=== PATIENT | male | born 1980 | race Caucasian/White ===

== ENCOUNTER 2020-03-05 17:48 | Emergency (ER) | payer OTHER ==
[~2020-03-05] VITALS: Ht 188 cm; Wt 74.8 kg
[~2020-03-05 17:48] MED LIST: CYCL10 PO; DOXY100 PO; Naprosyn500 MG PO; OXYACE5T PO; PERM5TC TOP
== END 2020-03-05 18:19 | disposition home or self-care (01) ==
LOC: ER 17:48
DX: J06.9 Acute upper respiratory infection, unspecified (principal); Z88.5 Allergy status to narcotic agent
CPT/HCPCS: 99283

== ENCOUNTER 2020-08-01 19:18 | Emergency (ER) | payer OTHER ==
[~2020-08-01] VITALS: Ht 175.3 cm; Wt 68.0 kg
== END 2020-08-01 20:30 | disposition left against medical advice (07) ==
LOC: ER 19:18
DX: Z02.1 Encounter for pre-employment examination (principal); Z53.21 Procedure and treatment not carried out due to patient leaving prior to being seen by health care provider
CPT/HCPCS: 99282

== ENCOUNTER 2020-12-31 14:35 | Observation (INO) | payer OTHER ==
[~2020-12-31] VITALS: Ht 185.4 cm; Wt 67.2 kg
[2020-12-31 15:09] LABS: BASOPHILS ABSOLUTE AUTO 0.07 K/mm3 (0.00-0.23); BASOPHILS PERCENT AUTO 1 % (0-2); EOSINOPHILS ABSOLUTE AUTO 0.31 K/mm3 (0.00-0.68); EOSINOPHILS PERCENT AUTO 3 % (0-6); Hematocrit 40.3 % (37.0-53.0); Hemoglobin 13.6 g/dL (13.5-17.5); IMMATURE GRAN ABSOLUTE AUTO 0.03 K/mm3 (0.00-0.10); IMMATURE GRAN PERCENT AUTO 0 % (0-1); LYMPHOCYTES PERCENT AUTO 34 % (21-46); MONOCYTES ABSOLUTE AUTO 0.91 K/mm3 (0.16-1.47); MONOCYTES PERCENT AUTO 9 % (4-13); Mean Corpuscular HGB 29.5 pg (26.0-34.0); Mean Corpuscular HGB Conc 33.7 g/dL (31.5-36.5); Mean Corpuscular Volume 87 fL (80-100); Mean Platelet Volume 10.1 fL (9.1-12.4); NEUTROPHILS PERCENT AUTO 52 % (41-73); Platelet Count 268 K/mm3 (150-400); RDW Coefficient Variation 13.7 % (11.7-14.2); RDW Standard Deviation 44.1 fL (35.1-46.3); Red Blood Cell Count 4.61 M/mm3 (4.30-5.90); White Blood Cell Count 9.72 K/mm3 (4.00-11.30)
[2020-12-31 15:23] LABS: International Normalized Ratio 0.98; Prothrombin Time Results 10.6 Sec (9.7-11.5)
[2020-12-31 15:31] LABS: Alanine Aminotransfer (ALT/SGP 29 U/L (12-78); Albumin/Globulin Ratio 1.1 (0.8-1.8); Alk Phos 70 U/L (50-136); Anion Gap 3 mmol/L (6-16); Aspartate Aminotrans (AST/SGOT 16 U/L (12-37); Bilirubin, Total 0.3 mg/dL (0.1-1.0); Blood Urea Nitrogen 16 mg/dL (8-24); CO2, Blood 28 mmol/L (21-32); Calcium, Blood 9.3 mg/dL (8.5-10.1); Chloride, Blood 108 mmol/L (98-108); Creatinine, Blood 1.07 mg/dL (0.60-1.20); Ethanol (Alcohol), Blood, Med 3 mg/dL; Globulin, Blood 3.5 g/dL (2.2-4.0); Glomerular Filtration Rate >60 (60-); Glucose, Blood 111 mg/dL (70-99); Potassium, Blood 3.8 mmol/L (3.5-5.5); Sodium, Blood 139 mmol/L (136-145); Total Protein, Blood 7.5 g/dL (6.4-8.2)
--- NOTE | 2020-12-31 18:35 | NUR ---
ADMISSION: REPORT RECEIVED FROM ED RN ALEX. PT TO UNIT AT 1730. UPON ASSESSMENT PT DOES NOT APPEAR TO BE IN ANY ACUTE DISTRESS. IS DROWSY, WILL OPEN EYES SLIGHTY WHEN ASKED AND FOLLOWS COMMANDS. PT IS ORIENTED TO SELF AND PLACE. DISORIENTED TO TIME AND SITUATION. C -COLLAR IN PLACE. VSS, TELE PLACED AND VERIFIED WNL. PT FATHER AT BEDSIDE AND HELPED WITH ADMISSION HX, HOME MEDICATIONS UNKNOWN AT THIS TIME. WILL CTM AND REPORT TO NOC RN.
--- NOTE | 2020-12-31 19:45 | NUR ---
DR TANNER IN TO SEE PT. FATHER IN ROOM.
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
[2021-01-01] MEDS ORDERED: Percocet 5-3251 EACH PO (10:59)
--- NOTE | 2021-01-01 11:16 | NUR ---
DISCHARGE: PACKET PRINTED AND PT EDUCATED. PT GIVEN NARCO SCRIPT, IV DC'D WNL. PT DENIED NEED FOR WHEELCHAIR. LEFT UNIT ON FOOT WITH DAD AT ABOUT 11:15
== END 2021-01-01 11:15 | disposition home or self-care (01) ==
LOC: ER 14:35 → SURS 14:36
PROVIDERS: Emergency Medicine; ADMIT Surgery
DX: S06.0X9A Concussion with loss of consciousness of unspecified duration, initial encounter (principal); F17.210 Nicotine dependence, cigarettes, uncomplicated; V29.9XXA Motorcycle rider (driver) (passenger) injured in unspecified traffic accident, initial encounter; Z88.5 Allergy status to narcotic agent
CPT/HCPCS: 36415; 70450; 71045; 71260; 72125; 73030; 74177; 80053; 83690; 85025; 85610; 94762; 96374; 96374-59; 96375-59; 99285-25; G0378; G0480; J1630; J2060; J3010; J7120; Q9967

== ENCOUNTER 2021-01-20 18:37 | Emergency (ER) | payer OTHER ==
[~2021-01-20] VITALS: Ht 190.5 cm; Wt 68.0 kg
[~2021-01-20 18:37] MED LIST changes: +Percocet 5-3251 EACH PO
[2021-01-20 19:16] LABS: BASOPHILS ABSOLUTE AUTO 0.07 K/mm3 (0.00-0.23); BASOPHILS PERCENT AUTO 1 % (0-2); EOSINOPHILS ABSOLUTE AUTO 0.33 K/mm3 (0.00-0.68); EOSINOPHILS PERCENT AUTO 2 % (0-6); Hematocrit 39.4 % (37.0-53.0); Hemoglobin 13.3 g/dL (13.5-17.5); IMMATURE GRAN ABSOLUTE AUTO 0.24 K/mm3 (0.00-0.10); IMMATURE GRAN PERCENT AUTO 2 % (0-1); LYMPHOCYTES ABSOLUTE AUTO 4.91 K/mm3 (0.84-5.20); LYMPHOCYTES PERCENT AUTO 33 % (21-46); MONOCYTES ABSOLUTE AUTO 1.13 K/mm3 (0.16-1.47); MONOCYTES PERCENT AUTO 8 % (4-13); Mean Corpuscular HGB 29.8 pg (26.0-34.0); Mean Corpuscular HGB Conc 33.8 g/dL (31.5-36.5); Mean Corpuscular Volume 88 fL (80-100); NEUTROPHILS ABSOLUTE AUTO 8.45 K/mm3 (1.96-9.15); NEUTROPHILS PERCENT AUTO 56 % (41-73); Platelet Count 278 K/mm3 (150-400); RDW Coefficient Variation 13.6 % (11.7-14.2); RDW Standard Deviation 44.3 fL (35.1-46.3); Red Blood Cell Count 4.47 M/mm3 (4.30-5.90); White Blood Cell Count 15.13 K/mm3 (4.00-11.30)
[2021-01-20 19:38] LABS: Alanine Aminotransfer (ALT/SGP 36 U/L (12-78); Albumin, Blood 3.9 g/dL (3.4-5.0); Albumin/Globulin Ratio 1.2 (0.8-1.8); Alk Phos 75 U/L (50-136); Anion Gap 4 mmol/L (6-16); Aspartate Aminotrans (AST/SGOT 33 U/L (12-37); Bilirubin, Total 0.4 mg/dL (0.1-1.0); Blood Urea Nitrogen 20 mg/dL (8-24); Bun/Creatinine Ratio 17.5 (12.0-20.0); CO2, Blood 27 mmol/L (21-32); Calcium, Blood 9.2 mg/dL (8.5-10.1); Chloride, Blood 108 mmol/L (98-108); Creatinine, Blood 1.14 mg/dL (0.60-1.20); Globulin, Blood 3.2 g/dL (2.2-4.0); Glomerular Filtration Rate >60 (60-); Glucose, Blood 133 mg/dL (70-99); Potassium, Blood 3.9 mmol/L (3.5-5.5); Sodium, Blood 139 mmol/L (136-145); Total Protein, Blood 7.1 g/dL (6.4-8.2)
== END 2021-01-20 23:14 | disposition short-term general hospital (02) ==
LOC: ER 18:37
PROVIDERS: Emergency Medicine
DX: S82.302A Unspecified fracture of lower end of left tibia, initial encounter for closed fracture (principal); S82.832A Other fracture of upper and lower end of left fibula, initial encounter for closed fracture; F17.210 Nicotine dependence, cigarettes, uncomplicated; Z88.5 Allergy status to narcotic agent; V23.4XXA Motorcycle driver injured in collision with car, pick-up truck or van in traffic accident, initial encounter; Y92.410 Unspecified street and highway as the place of occurrence of the external cause
CPT/HCPCS: 27788; 36415; 70450; 71260; 72125; 73070; 73560-LT; 73600; 73706; 74177; 80053; 85025; 86850; 86900; 86901; 96365-59; 96375-59; 96376-59; 99152; 99285-25; J0690; J1170; J3010; Q9967

== ENCOUNTER 2021-02-02 20:52 | Emergency (ER) | payer OTHER | END 2021-02-02 21:22 | disposition left against medical advice (07) | LOC: ER 20:52 | DX: Z53.21 Procedure and treatment not carried out due to patient leaving prior to being seen by health care provider (principal) ==